=== PATIENT | male | born 1990 | race African-American/Black ===

== ENCOUNTER 2016-12-12 09:50 | Emergency (ER) | payer SELFPAY ==
[2016-12-12] MEDS ORDERED: Ketorolac Tromethamine 30 MG/ML VIAL ONE (10:45)
== END 2016-12-12 11:08 | disposition home or self-care (01) ==
LOC: ERS 09:50
DX: K05.10 Chronic gingivitis, plaque induced (principal)
CPT/HCPCS: 96372; J1885

== ENCOUNTER 2017-12-25 07:14 | Emergency (ER) | payer SELFPAY | END 2017-12-25 09:02 | disposition home or self-care (01) | LOC: ERS 07:14 | DX: K04.7 Periapical abscess without sinus (principal) | CPT/HCPCS: 99282 ==

== ENCOUNTER 2018-04-29 19:33 | Emergency (ER) | payer SELFPAY ==
[2018-04-29] MEDS ORDERED: Lidocaine Viscous Sol 2% 15 ml UD Cup ONE (20:38)
== END 2018-04-29 21:12 | disposition home or self-care (01) ==
LOC: ERS 19:33
DX: K04.7 Periapical abscess without sinus (principal); K02.9 Dental caries, unspecified
CPT/HCPCS: 99282